=== PATIENT | female | born 1970 | race Hispanic/Latino ===

== ENCOUNTER 2019-03-21 21:36 | Emergency (ER) | payer BC, OTHER | END 2019-03-21 22:54 | disposition home or self-care (01) | LOC: EDH 21:36 | DX: S39.012A Strain of muscle, fascia and tendon of lower back, initial encounter (principal); S16.1XXA Strain of muscle, fascia and tendon at neck level, initial encounter; Z88.2 Allergy status to sulfonamides; I10 Essential (primary) hypertension; Z90.49 Acquired absence of other specified parts of digestive tract; Z90.710 Acquired absence of both cervix and uterus; V69.88XA Occupant (driver) (passenger) of heavy transport vehicle injured in other specified transport accidents, initial encounter; Y93.89 Activity, other specified; Y92.488 Other paved roadways as the place of occurrence of the external cause; Y99.8 Other external cause status ==

== ENCOUNTER 2019-04-05 13:35 | Emergency (ER) | payer OTHER ==
[2019-04-05] MEDS ORDERED: CEFTRIAXONE SODIUM 1 GM ONE (15:21)
[2019-04-05] MEDS ORDERED: LIDOCAINE HCL-MPF 1% 2ML VIAL ONE (15:21)
[2019-04-05] MEDS ORDERED: DEXAMETHASONE SOD PHOSPHATE 10MG/ML 1ML VIAL ONE (15:21)
== END 2019-04-05 17:43 | disposition home or self-care (01) ==
LOC: EDH 13:35
DX: J20.9 Acute bronchitis, unspecified (principal); I10 Essential (primary) hypertension; Z88.8 Allergy status to other drugs, medicaments and biological substances; Z90.710 Acquired absence of both cervix and uterus; Z72.0 Tobacco use
CPT/HCPCS: 71046; 71250; 87804 ×2; 96372 ×2; 99285; J0696; J1100; J3490

== ENCOUNTER → 2023-08-26 | Outpatient (CLI) | payer BC | END | disposition home or self-care (01) | LOC: RAH 11:36 | PROVIDERS: ATTEND Nurse Practitioner Adult Health | DX: Z12.31 Encounter for screening mammogram for malignant neoplasm of breast (principal) | CPT/HCPCS: 77067 ==